=== PATIENT | female | born 1955 | race Caucasian/White ===

== ENCOUNTER 2017-08-07 06:58 | Day surgery (SDC) | payer MEDICAID ==
[2017-08-07] MEDS ORDERED: Midazolam 1 MG/ML 2 ML SDV ONE (07:05)
[2017-08-07] MEDS ORDERED: Propofol 200 MG/20 ML SDV ONE ×2 (07:05→09:31)
[2017-08-07] MEDS ORDERED: fentaNYL 100 MCG/2 ML SDV ONE (07:05)
[2017-08-07] MEDS ORDERED: Dextrose 5%-Lactated Ringers 1,000 ML IV SCH (07:45)
[2017-08-07] MEDS ORDERED: Scopolamine 1.5 MG Transdermal Patch TOP SCH (08:00)
[2017-08-07] MEDS ORDERED: Glycopyrrolate 0.2 MG/ML 2 ML SDV IVPUSH ONE (08:15)
[2017-08-07 12:03] VITALS: BP 118/75
--- NOTE | 2017-08-10 13:19 | OR ---
DATE OF PROCEDURE: 08/07/2017 PREOPERATIVE DIAGNOSES: 1. Postprandial abdominal bloating. 2. Indication for screening colonoscopy with family history of colon carcinoma. POSTOPERATIVE DIAGNOSES: 1. Postprandial bloating associated with mild gastritis. 2. Normal colonoscopic exam. OPERATIVE PROCEDURES: 1. Esophagogastroduodenoscopy with biopsies of antrum for CLOtest. 2. Colonoscopy. ANESTHESIA: IV sedation. INDICATION FOR PROCEDURE: This 61-year-old presenting for upper endoscopy to evaluate some postprandial bloating and occasional nausea. She is not presently on any antisecretory medications. She also is here for a colonoscopy. It is notable that her father and uncle had colon cancer, and given this, she should be on a five year cycle for colonoscopy. In fact, plan is to proceed with upper and lower endoscopy with biopsies as indicated. Potential risks including bleeding and perforation were discussed, and the patient wishes to proceed. DETAILS OF PROCEDURE: The patient was taken to the operating room and placed in a left lateral decubitus position. After IV sedation was administered, the upper GI endoscope was passed orally through the length of the esophagus and stomach with retroflexion view of the fundus, thereafter through the pyloric channel and into the junction of the third and fourth portions of the duodenum. Findings include a normal hypopharynx, larynx, upper esophageal sphincter, and esophageal body. No significant inflammation or hiatal hernia was noted in the stomach. There was no retained food or bile and there was some mild redness in the antral area without erosions or ulcers. The pyloric channel and visualized portion of the duodenum were unremarkable. At this point, biopsies were obtained from the antrum and sent for CLOtest for H. pylori. Minimal bleeding from the biopsy sites were seen, and the gastroscope was removed. Attention was then taken to the colonoscopy. Initial digital rectal exam was performed and was unremarkable. Colonoscope was then passed into the rectum with retroflexion revealing uncomplicated hemorrhoidal columns. The scope was eventually passed to the cecum. The prep was fairly good with there only being a small amount of liquid stool present. Overall, there were no abnormalities, no areas of diverticulosis, no areas of colitis and no polyps or other signs of neoplasia identified. The scope was then withdrawn. The above findings reconfirmed, and the procedure concluded. The patient was taken to the recovery room in satisfactory condition. The patient's abdominal bloating symptoms would appear to be functional and maybe worthwhile at some point to try something to augment gastric emptying such as a course of Reglan or erythromycin. Otherwise, if the CLOtest is positive, we will contact her and initiate a course of anti H. pylori treatment. Apart from that, I will think the gastritis is significant enough that we will need otherwise a specific treatment. With family history of colon carcinoma, I would recommend a repeat colonoscopy in 5 years. Eze Goode MD /[id number]
== END 2017-08-07 12:15 | disposition home or self-care (01) ==
LOC: JP.SDS 06:58
PROVIDERS: ATTEND Surgery
DX: Z12.11 Encounter for screening for malignant neoplasm of colon (principal); K29.70 Gastritis, unspecified, without bleeding; Z80.0 Family history of malignant neoplasm of digestive organs; I10 Essential (primary) hypertension
CPT/HCPCS: 43239; 45378; 87081; A9270; J2250; J2704; J3010; J7042; J3490